=== PATIENT | male | born 1960 | race Caucasian/White ===

== ENCOUNTER 2016-08-01 16:45 | Outpatient (CLI) | payer OTHER ==
--- NOTE | 2016-08-01 18:24 | DIAGNOSTIC IMAGING REPORT ---
PROCEDURE: US ABDOMEN VASCULAR-AAA INDICATION: 3CM ABD AORTIC ANEURYSM TECHNIQUE: Ernst scale and color Doppler sonographic images of the abdomen were obtained. COMPARISON: None available FINDINGS: Atherosclerotic disease was seen throughout the abdominal aorta. PROXIMAL ABDOMINAL AORTA: 3.4 cm MIDABDOMINAL AORTA: 2.4 cm DISTAL ABDOMINAL AORTA: 3.3 cm RIGHT COMMON ILIAC ARTERY: 1.2 cm LEFT COMMON ILIAC ARTERY: 1.2 cm IMPRESSION: 1. Atherosclerotic aorta with maximum diameter of 3.4 cm.
== END 2016-08-01 23:00 ==
LOC: US SRH 16:45
DX: I70.0 Atherosclerosis of aorta (principal)